=== PATIENT | female | born 1980 | race Hispanic/Latino ===

== ENCOUNTER → 2023-05-01 | Day surgery (SDC) | payer MEDICARE, OTHER ==
[~2023-05-01] MED LIST: ARANESP200 MCG/1 INJ; ATORVASTATIN CA20 MG PO; BUPIVACAINE HCL 0.5% INJ 30 ML VIAL INJ ONE; CHOLESTYRAMINE P4 GM; DEXMEDETOMIDINE HCL 200 MCG/2 ML VIAL ONE; FENTANYL CITRATE/PF 100MCG/2 ML INJ ONE; HEPARIN SQ; HUMALOG100 UNIT/1; HYDRALAZINE HCL25 MG PO; IODOSORB40 GM TOP; JUVEN PACKET1 EACH; LABETALOL HCL 5 MG/ML 20ML VIAL ONE; LACTATED RINGER'S 0 ML ONE; LANTUS 3ML100 UNITS/; LEVETIRACETAM500 MG PO; LORAZEPAM2 MG/1 M1 IVP; LOSARTAN POTAS100 MG PO; MELATONIN3 MG PO; METOPROLOL TART50 MG PO; MIDAZOLAM HCL 2 MG/2 ML VIAL ONE; MIRTAZAPINE7.5 MG PO; MUPIROCIN 2% OINT 22 GM TUBE ONE; NEPRO CARB STE237 ML; NITROGLYCERIN OINT; PROPOFOL IV EMULSION 10 MG/ML 20 ML VIAL ONE; PROTONIX20 MG PO; RENVELA0.8 GM PO; SODIUM CHLORIDE 0.9% 500ML 500 ML ONE; ZOSYN 3.373.375 GM/5 IVP
[2023-05-01 07:45] LABS: INR 1.16; PROTHROMBIN TIME 15.1 seconds (11.9-14.5)
[2023-05-01 07:46] LABS: POTASSIUM 3.9 mmol/L (3.5-5.1)
[2023-05-01 10:14] VITALS: TEMP 98.7
[2023-05-01 10:55] VITALS: BP 143/80; PULSE 80; RESP 15; O2SAT 97
== END | disposition home or self-care (01) ==
LOC: OR 06:49
PROVIDERS: ATTEND Plastic Surgery
DX: I96 Gangrene, not elsewhere classified (principal); M86.142 Other acute osteomyelitis, left hand; E11.319 Type 2 diabetes mellitus with unspecified diabetic retinopathy without macular edema; E11.22 Type 2 diabetes mellitus with diabetic chronic kidney disease; I12.0 Hypertensive chronic kidney disease with stage 5 chronic kidney disease or end stage renal disease; N18.6 End stage renal disease; D63.1 Anemia in chronic kidney disease; E78.5 Hyperlipidemia, unspecified; E21.3 Hyperparathyroidism, unspecified; K21.9 Gastro-esophageal reflux disease without esophagitis; G91.9 Hydrocephalus, unspecified; E63.8 Other specified nutritional deficiencies; R53.1 Weakness; Z99.2 Dependence on renal dialysis; Z79.4 Long term (current) use of insulin; Z79.82 Long term (current) use of aspirin; Z79.899 Other long term (current) drug therapy
CPT/HCPCS: 26951; 26952 ×2; 36415; 82948; 84132; 84702; 85610; 85730; 88305; 88311; J0690; J2250; J2704; J3010; J3490; J7040; 88304